=== PATIENT | female | born 1960 | race Caucasian/White ===

== ENCOUNTER → 2017-06-12 | Outpatient (CLI) | payer BC | END | disposition home or self-care (01) | LOC: MAMMO 10:44 | PROVIDERS: ATTEND Obstetrics & Gynecology | DX: Z12.31 Encounter for screening mammogram for malignant neoplasm of breast (principal) | CPT/HCPCS: 77063; G0202 ==

== ENCOUNTER → 2017-07-03 | Outpatient (CLI) | payer BC ==
--- NOTE | 2017-07-04 01:02 | MRI ---
EXAM DATE: 07/03/2017 1:47 PM [employer]. PROCEDURE: MR CERVICAL SPINE WITHOUT IV CONTRAST. INDICATION: SPONDYLOSIS. COMPARISON: None. TECHNIQUE: Multiplanar T1 and T2 MRI images of the cervical spine were acquired without administration of intravenous contrast. FINDINGS: There is straightening of the normal cervical lordosis. The cervical vertebral bodies otherwise demonstrate normal height and alignment. There is mild to moderate intervertebral disc space height loss seen throughout the cervical spine with desiccation. Normal marrow signal. Note is made of a congenitally small spinal canal. Focal cord signal abnormality at C5-C6, best seen on image seven series 201. C2-C3: No significant disc bulge. No spinal canal or neural foraminal narrowing. C3-C4: Mild disc bulge and ligamentous hypertrophy contributes to moderate/severe spinal canal stenosis. There is effacement of the ventral cord. Uncovertebral spurring and facet arthropathy contributes to moderate left and mild right foraminal stenoses. C4-C5: Central disc extrusion superimposed on a disc bulge. Disc material indents the ventral cord. There is severe spinal canal stenosis at this level. Uncovertebral spurring and facet arthropathy contributes to severe left and moderate right foraminal stenoses. C5-C6: Right eccentric disc bulge with osteophytic spurring indenting the ventral cord. Severe spinal canal stenosis. Uncovertebral spurring and facet arthropathy results in severe bilateral foraminal stenoses. C6-C7: Right subarticular disc extrusion superimposed on a disc bulge. Disc material effaces the ventral cord. There is moderate to severe spinal canal stenosis. Uncovertebral spurring and facet arthropathy results in severe right and mild left foraminal stenosis. C7-T1: No significant disc bulge. No spinal canal or neural foraminal narrowing. The soft tissues of the neck are unremarkable. IMPRESSION: Mild multilevel degenerative changes of the cervical spine or superimposed on a congenitally small spinal canal. There is resultant severe spinal canal stenosis at C3-C4, C4-C5, C5-C6, and C6-C7. 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 Severe bilateral foraminal stenoses C5-C6, severe left foraminal stenosis C4-C5, severe right foraminal stenosis C6-C7. Electronically signed by: Edilberto Plasencia MD 07/04/2017 1:01 AM [facility]
--- NOTE | 2017-07-04 01:37 | MRI ---
EXAM DATE: 07/03/2017 1:47 PM [employer]. PROCEDURE: MR LUMBAR SPINE WITHOUT IV CONTRAST. INDICATION: SPONDYLOSIS. COMPARISON: MRI lumbar spine from 2012. TECHNIQUE: Multiplanar T1 and T2 MRI images of the lumbar spine were acquired without administration of intravenous contrast. FINDINGS: There is minimal 2 to 3 mm retrolisthesis L5 on S1. The lumbar vertebral bodies otherwise demonstrate normal height and alignment. There is advanced intervertebral disc space height loss at L5-S1 and mild intervertebral disc space height loss from L2 through L5. Normal marrow signal. The conus terminates at the level of L1-L2. L1-L2: Ligamentous hypertrophy without spinal canal stenosis. Mild bilateral facet arthropathy without foraminal stenosis. L2-L3: Disc bulge and ligamentous hypertrophy contributes to mild narrowing of the spinal canal. There is mild bilateral facet arthropathy without significant foraminal stenosis. L3-L4: Disc bulge and ligamentous hypertrophy without spinal canal stenosis. Mild to moderate bilateral facet arthropathy results in mild bilateral foraminal narrowing. L4-L5: Disc bulge and ligamentous hypertrophy contributes to mild narrowing of the spinal canal. Small posterior annular fissure. Mild bilateral facet arthropathy contributes to mild bilateral foraminal narrowing. L5-S1: Disc bulge and ligamentous hypertrophy contributes to mild narrowing of the spinal canal. There is moderate bilateral facet arthropathy contributing to moderate right and severe left foraminal stenoses. The partially visualized abdominopelvic organs are unremarkable. IMPRESSION: Mild multilevel degenerative changes of the lumbar spine, progressed from 2011. No high-grade spinal canal stenosis at any level. Severe left and moderate right foraminal stenoses at L5-S1 secondary to facet arthropathy and disc bulge. Electronically signed by: Edilberto Plasencia MD 07/04/2017 1:35 AM [facility]
== END | disposition home or self-care (01) ==
LOC: MRI 13:36
PROVIDERS: ATTEND Psychiatry & Neurology Pain Medicine
DX: M47.812 Spondylosis without myelopathy or radiculopathy, cervical region (principal); M47.816 Spondylosis without myelopathy or radiculopathy, lumbar region

== ENCOUNTER → 2017-08-21 | Outpatient (CLI) | payer BC | LOC: RESP 08-20 17:20 → LAB.O 00:01 | PROVIDERS: ATTEND Obstetrics & Gynecology | DX: J06.9 Acute upper respiratory infection, unspecified (principal) ==

== ENCOUNTER → 2017-09-08 | Outpatient (CLI) | payer BC | END | disposition home or self-care (01) | LOC: LAB.O 10:25 | PROVIDERS: ATTEND Obstetrics & Gynecology | DX: E78.5 Hyperlipidemia, unspecified (principal) ==

== ENCOUNTER → 2019-06-04 | Outpatient (CLI) | payer BC ==
--- NOTE | 2019-06-08 11:54 | MAM ---
EXAM DESCRIPTION: 3D Screening BILATERAL : Digital Mammography. CLINICAL HISTORY: 58 years Female SCREENING . No complaints. No personal history of breast cancer. Remote family history of breast cancer. Menarche age 13. Childbirth. Postmenopausal 10+ years. HRT 5 or more years ago.. Lifetime risk of developing breast cancer (Tyrer-Cuzick model)(%): 6.9. COMPARISON: Bilateral screening digital breast tomosynthesis 12 June 2017. TECHNIQUE: Bilateral CC and MLO projection full-field images, digital tomosynthesis mammographic technique. Bilateral digital 2-D full-field MLO images. CAD not available for tomosynthesis or 2-D images. FINDINGS: The breast parenchymal density pattern is: Heterogeneously dense breast tissue, which may obscure small masses.. Bilateral skin calcifications. Bilateral solitary microcalcifications. Bilateral intramammary lymph nodes. No new focal, stellate mass or density, focal asymmetry , and no suspicious microcalcifications bilaterally. Stable mammograms compared to prior study. IMPRESSION: Benign exam. BIRAD CATEGORY: 2 BENIGN FINDINGS. RECOMMENDATIONS: FOLLOW UP: Routine digital bilateral mammographic screening, one year interval from May 2019. Written communication explaining the IMPRESSION and follow-up, will be mailed to the patient and referring health care provider. According to the [employer], yearly mammograms are recommended starting at age 40 and continuing as long as a woman is in good health. Any breast change noted on a breast self-exam should be reported promptly to the patient's healthcare provider. Breast MRI is recommended for women with an approximately 20-25% or greater lifetime risk of breast cancer, including women with a strong family history of breast or ovarian cancer and women who have been treated for Hodgkin's disease. A negative mammographic report should not delay tissue diagnosis in patients with significant clinical history or physical findings. Extremely dense breast tissue limits the sensitivity of digital mammography. Electronically signed by: Irving Hennessy MD 06/08/2019 11:52 AM CDT
== END ==
LOC: MAMMO 08:00
PROVIDERS: ATTEND Obstetrics & Gynecology
DX: Z12.31 Encounter for screening mammogram for malignant neoplasm of breast (principal)

== ENCOUNTER → 2019-07-13 | Outpatient (CLI) | payer BC | END | disposition home or self-care (01) | LOC: LAB.O 09:22 | PROVIDERS: ATTEND Obstetrics & Gynecology | DX: Z01.419 Encounter for gynecological examination (general) (routine) without abnormal findings (principal) ==

== ENCOUNTER → 2020-07-07 | Outpatient (CLI) | payer BC ==
--- NOTE | 2020-07-07 15:24 | US ---
EXAM DESCRIPTION: Abdomen,Complete: Ultrasound. CLINICAL HISTORY: 59 years Female left upper quadrant tenderness COMPARISON: None Available. TECHNIQUE: Transabdominal scanning: grayscale and Doppler modes. FINDINGS: Gallbladder: Surgically removed. No fluid in the gallbladder fossa. Abdominal wall Non-tender with transducer pressure. Common bile duct: caliber 3.5 mm within normal limits. Liver: Heterogeneously increased echogenicity; contour liver capsule smooth where seen. No fluid around the liver. Intrahepatic biliary ducts normal caliber. Doppler hepatopedal flow and normal caliber portal vein 12 mm.. Long axis right lobe 16.5 cm. Pancreas: normal size and echogenicity. Duct not seen. Complete abdominal aorta: Normal caliber from the proximal segment to the distal bifurcation.. IVC: visualized and normal caliber. Right kidney: long axis measures 11.0 cm; volume 127.4 mL. Cortical echogenicity . Normal. Normal cortical thickness. No echogenic stones; no hydronephrosis. Left kidney: long axis measures 10.6 cm; volume 138 mL. Cortical echogenicity . Normal. Normal cortical thickness. No echogenic stones; no hydronephrosis. Spleen: Normal. No focal lesions.. 11.8 cm long axis. Other: None. IMPRESSION: 1. Steatosis of the liver and borderline enlarged. Normal vascularity and ducts. Smooth capsule with no ascites. Pancreas unremarkable. Normal sonography of the spleen. 2. Bilateral kidneys are negative. Normal caliber of the abdominal aorta and IVC. 3. Prior cholecystectomy. Minimal dilation of the common bile duct, increased even after cholecystectomy. Electronically signed by: Irving Hennessy MD 07/07/2020 3:23 PM [facility]
--- NOTE | 2020-07-10 15:44 | MAM ---
EXAM DESCRIPTION: 3D Screening BILATERAL : Digital Mammography. CLINICAL HISTORY: 59 years Female SCREENING . No complaints. Remote family history of breast cancer. Menarche age 13. Childbirth age 23. Menopause age 40. COMPARISON: Bilateral screening digital breast tomosynthesis May 2019 and May 2017. TECHNIQUE: Bilateral CC and MLO projection full-field images, digital tomosynthesis mammographic technique. Bilateral digital 2-D full-field MLO images. CAD available for 2-D images. Technically difficult study due to positioning MLO images for pectoral muscle visualization. FINDINGS: The breast parenchymal density pattern is: Scattered areas of fibroglandular density. No skin thickening or nipple retraction. Bilateral solitary microcalcifications. No new focal, stellate mass or density, focal asymmetry , and no suspicious microcalcifications bilaterally. Stable mammograms compared to prior study. IMPRESSION: Benign exam. BIRAD CATEGORY: 2 BENIGN FINDINGS. RECOMMENDATIONS: FOLLOW UP: Routine digital bilateral mammographic screening, one year interval from June 2020. Written communication explaining the IMPRESSION and follow-up, will be mailed to the patient and referring health care provider. According to the [employer], yearly mammograms are recommended starting at age 40 and continuing as long as a woman is in good health. Any breast change noted on a breast self-exam should be reported promptly to the patient's healthcare provider. Breast MRI is recommended for women with an approximately 20-25% or greater lifetime risk of breast cancer, including women with a strong family history of breast or ovarian cancer and women who have been treated for Hodgkin's disease. A negative mammographic report should not delay tissue diagnosis in patients with significant clinical history or physical findings. Extremely dense breast tissue limits the sensitivity of digital mammography. Electronically signed by: Irving Hennessy MD 07/10/2020 3:42 PM [facility]
== END ==
LOC: MAMMO 07:45
PROVIDERS: ATTEND Obstetrics & Gynecology
DX: Z12.31 Encounter for screening mammogram for malignant neoplasm of breast (principal); K76.0 Fatty (change of) liver, not elsewhere classified; Z90.49 Acquired absence of other specified parts of digestive tract; K83.8 Other specified diseases of biliary tract

== ENCOUNTER 2020-07-24 07:16 | Day surgery (SDC) | payer BC ==
[~2020-07-24 07:16] MED LIST: BETAMETHASONE ACETATE/BETAMETH 6 MG/ML VIAL IM ONE; BUPIVACAINE 0.5% 30 ML VIAL INJ ONE; LIDOCAINE 1% 10 ML VIAL INJ ONE
[2020-07-24] MEDS ORDERED: LIDOCAINE 1% 10 ML VIAL INJ ONE ×2 (08:15→08:35)
[2020-07-24] MEDS ORDERED: BUPIVACAINE 0.5% 30 ML VIAL INJ ONE ×2 (08:16→08:35)
[2020-07-24] MEDS ORDERED: BETAMETHASONE ACETATE/BETAMETH 6 MG/ML VIAL IM ONE ×2 (08:16→08:35)
== END 2020-07-24 09:01 | disposition home or self-care (01) ==
LOC: AMB 07:16
PROVIDERS: ATTEND Family Medicine Sports Medicine
DX: M54.5 Low back pain (principal); M47.896 Other spondylosis, lumbar region; I10 Essential (primary) hypertension; E11.9 Type 2 diabetes mellitus without complications; Z90.710 Acquired absence of both cervix and uterus; Z90.49 Acquired absence of other specified parts of digestive tract; Z79.84 Long term (current) use of oral hypoglycemic drugs; Z79.899 Other long term (current) drug therapy